=== PATIENT | female | born 1995 | race Caucasian/White ===

== ENCOUNTER 2022-05-30 11:09 | Outpatient (CLI) | payer MEDICAID, SELFPAY ==
[2022-06-01 02:17] LABS: Rheumatoid Factor <10 IU/mL (0-14)
[2022-06-02 09:10] LABS: HLA-B27 Negative (Negative)
== END 2022-05-30 11:10 | disposition home or self-care (01) ==
PROVIDERS: PCP Family Medicine; Visit Provider Family Medicine
DX: G89.29 Other chronic pain (principal); M54.9 Dorsalgia, unspecified
CPT/HCPCS: 86200; 86431; 86812

== ENCOUNTER 2022-06-14 07:56 | Outpatient (CLI) | payer MEDICAID, SELFPAY ==
--- NOTE | 2022-06-14 08:15 | CRLHL7_ITS ---
For Patients: As a result of the Century Cures Act, medical imaging exams and procedure reports are released immediately into your electronic medical record. You may view this report before your referring provider. If you have questions, please contact your health care provider. INDICATION: Chronic low back pain. TECHNIQUE: Multiplanar multisequence noncontrast MR images acquired through the lumbar spine. COMPARISON: None. FINDINGS: Mild rightward lumbar curvature. The lumbar lordosis is preserved. Vertebral body heights maintained. No acute fracture or spondylolisthesis. No T1 hypointense marrow replacing lesions or marrow edema. Normal conus terminates at L1-2. T12-L1 through L3-4: No spinal canal or neural foraminal narrowing. L4-5: Xsgg-nt-gbretdar disc degeneration. Broad-based left central/subarticular disc protrusion measuring 5 mm in short axis severely narrows the left lateral recess. Mild spinal canal narrowing. No neural foraminal narrowing. L5-S1: Moderate disc degeneration. Broad-based left central disc protrusion measuring 4 mm in short axis with dorsal annular fissure contacts traversing left S1 nerve roots. Minimal facet arthropathy. Minimal spinal canal narrowing. No neural foraminal narrowing. Cholelithiasis. IMPRESSION: 1. At L4-5, broad-based left central/subarticular disc protrusion severely narrows the left lateral recess with likely impingement of traversing left L5 nerve roots. Mild spinal canal narrowing. 2. At L5-S1, broad-based left central disc protrusion contacts traversing left S1 nerve roots. Dorsal annular fissure. 3. Cholelithiasis. Dictated by Frank Nunn MD @ 06/14/2022 12:39:56 PM (Electronically Signed)
== END 2022-06-14 07:57 | disposition home or self-care (01) ==
LOC: MRI 07:57
PROVIDERS: PCP Family Medicine; Visit Provider Family Medicine
DX: M54.50 Low back pain, unspecified (principal); M51.26 Other intervertebral disc displacement, lumbar region; K80.20 Calculus of gallbladder without cholecystitis without obstruction; M51.27 Other intervertebral disc displacement, lumbosacral region
CPT/HCPCS: 72148

== ENCOUNTER 2022-06-28 14:38 | Outpatient (CLI) | payer MEDICAID, SELFPAY ==
[2022-06-28 17:36] LABS: Chloride* 108 mmol/L (96-114)
[2022-06-28 17:37] LABS: Albumin* 4.6 g/dL (3.3-5.0); Potassium* 4.1 mmol/L (3.6-5.1); Sodium* 143 mmol/L (135-149)
[2022-06-28 17:39] LABS: Creatinine* 0.6 mg/dL (0.5-1.5); Estimated Glomerular Filt Rate 126 ml/min
[2022-06-28 17:40] LABS: Alanine Aminotransferase* 18 U/L (4-35); Alkaline Phosphatase* 58 U/L (40-150); Aspartate Amino Transferase* 24 U/L (12-35); Bilirubin Total* 0.9 mg/dL (0.1-1.5); Blood Urea Nitrogen* 15 mg/dL (5-24); Calcium* 9.7 mg/dL (8.4-10.6); Carbon Dioxide* 28 mmol/L (20-32); Glucose* 88 mg/dL (60-115); Total Protein* 7.6 g/dL (6.0-8.3)
[2022-06-28 17:43] LABS: C Reactive Protein* < 0.5 mg/dL (0.5-1.0)
== END 2022-06-28 14:39 | disposition home or self-care (01) ==
PROVIDERS: PCP Family Medicine; Visit Provider Family Medicine
DX: R10.9 Unspecified abdominal pain (principal)
CPT/HCPCS: 80053; 86140

== ENCOUNTER 2022-07-10 08:07 | Outpatient (CLI) | payer MEDICAID, SELFPAY | END 2022-07-10 08:08 | disposition home or self-care (01) | LOC: INJ CL 08:07 | PROVIDERS: PCP Family Medicine; Visit Provider Family Medicine | DX: M54.16 Radiculopathy, lumbar region (principal); M51.26 Other intervertebral disc displacement, lumbar region | CPT/HCPCS: 62323; J0702; Q9966 ==